=== PATIENT | female | born 2000 | race Hispanic/Latino ===

== ENCOUNTER 2019-09-01 05:47 | Emergency (ER) | payer OTHER, SELFPAY ==
[2019-09-01 07:07] LABS: Urine Blood 1+ (NEG); Urine Glucose NEGATIVE (NEG); Urine Protein 2+ (NEG); Urine Specific Gravity >1.030 (1.005-1.030); Urine pH 5.5 (5.0-7.0)
[2019-09-01 07:40] LABS: Urine Bacteria 20-50 /HPF (<20); Urine Culture Reflex Order NOT NEEDED
[2019-09-01] MEDS ORDERED: NA CHLORIDE 0.9% 1,000 ML ONE (07:43)
[2019-09-01 08:00] LABS: Absolute Lymphocytes (CBC) 1.1 K/uL (0.7-4.9); Basophils % 0.1 % (0-1.3); Hematocrit 37.2 % (36.0-45.0); Lymphocytes % 5.3 % (15.3-44.8); RBC Red Blood Cell Count 4.04 M/uL (3.86-4.86)
[2019-09-01 08:12] LABS: Potassium 3.3 mmol/L (3.5-5.1)
[2019-09-01 09:03] LABS: Blood Morphology Comment NOT SEEN (NOT SEEN); Platelet Estimate ADEQ
[2019-09-01] MEDS ORDERED: CEFTRIAXONE/SWI 1gm 1 GM/10 ML SYR ONE (09:40)
--- NOTE | 2019-09-01 10:55 | EDPHYS ---
Physician Documentation [facility] Name: Isidra Todd Age: 19 yrs Sex: Female : 2000 Arrival Date: 09/01/2019 Time: 05:48 Bed 13 Private MD: ED Physician Kit Hawkins HPI: 08/31 06:59 This 19 yrs old Female presents to ER via Ambulatory with complaints of Fever, snw Vomiting. 06:59 The patient reports fever, that was measured at 104 degrees Fahrenheit. Onset: The snw symptoms/episode began/occurred suddenly, last night. Modifying factors: there are no obvious modifying factors. Associated signs and symptoms: Pertinent positives: decreased appetite, headache, nausea, vomiting. Severity of symptoms: At their worst the symptoms were moderate in the emergency department the symptoms are unchanged. The patient has not experienced similar symptoms in the past. The patient has not recently seen a physician. 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 - Social history:: Smoking status: Patient/guardian denies using. ROS: 06:58 Eyes: Negative for injury, pain, redness, and discharge, ENT: Negative for injury, snw pain, and discharge, Neck: Negative for injury, pain, and swelling, Cardiovascular: Negative for chest pain, palpitations, and edema, Respiratory: Negative for shortness of breath, cough, wheezing, and pleuritic chest pain. 06:58 Back: Negative for injury and pain, : Negative for injury, bleeding, discharge, and swelling, MS/Extremity: Negative for injury and deformity, Skin: Negative for injury, rash, and discoloration, Neuro: Negative for headache, weakness, numbness, tingling, and seizure, Psych: Negative for depression, anxiety, suicide ideation, homicidal ideation, and hallucinations. 06:58 Constitutional: Positive for fever. 06:58 Abdomen/GI: Positive for nausea and vomiting. Exam: 06:58 Head/Face: Normocephalic, atraumatic. Eyes: Pupils equal round and reactive to light, snw extra-ocular motions intact. Lids and lashes normal. Conjunctiva and sclera are non-icteric and not injected. Cornea within normal limits. Periorbital areas with no swelling, redness, or edema. ENT: Nares patent. No nasal discharge, no septal abnormalities noted. Tympanic membranes are normal and external auditory canals are clear. Oropharynx with no redness, swelling, or masses, exudates, or evidence of obstruction, uvula midline. Mucous membranes moist. Neck: Trachea midline, no thyromegaly or masses palpated, and no cervical lymphadenopathy. Supple, full range of motion without nuchal rigidity, or vertebral point tenderness. No Meningismus. Chest/axilla: Normal chest wall appearance and motion. Nontender with no deformity. No lesions are appreciated. Respiratory: Lungs have equal breath sounds bilaterally, clear to auscultation and percussion. No rales, rhonchi or wheezes noted. No increased work of breathing, no retractions or nasal flaring. Abdomen/GI: Soft, non-tender, with normal bowel sounds. No distension or tympany. No guarding or rebound. No evidence of tenderness throughout. Back: No spinal tenderness. No costovertebral tenderness. Full range of motion. Skin: Warm, dry with normal turgor. Normal color with no rashes, no lesions, and no evidence of cellulitis. MS/ Extremity: Pulses equal, no cyanosis. Neurovascular intact. Full, normal range of motion. Neuro: Awake and alert, GCS 15, oriented to person, place, time, and situation. Cranial nerves II-XII grossly intact. Motor strength 5/5 in all extremities. Sensory grossly intact. Cerebellar exam normal. Normal gait. Psych: Awake, alert, with orientation to person, place and time. Behavior, mood, and affect are within normal limits. 06:58 Constitutional: The patient appears alert, febrile, uncomfortable. 06:58 Cardiovascular: Rate: tachycardic, Rhythm: regular, Pulses: no pulse deficits are appreciated, Heart sounds: normal. Vital Signs: 06:00 BP 119 / 69; Pulse 120; Resp 18; Temp 99.7(O); wh 07:30 BP 111 / 73; Pulse 95; Resp 18; Pulse Ox 99% on R/A; ph 08:41 BP 98 / 71; Pulse 83; Resp 18; Pulse Ox 100% on R/A; ph 10:00 BP 104 / 68; Pulse 77; Resp 16; Pulse Ox 100% on R/A; ph 11:19 BP 119 / 75; Pulse 67; Resp 18; Temp 98.1; Pulse Ox 99% on R/A; ph MDM: 06:54 Patient medically screened. snw 10:56 Data reviewed: vital signs, nurses notes, lab test result(s). Data interpreted: Cardiac snw monitor: Pulse oximetry: on room air is 100 %. Interpretation: normal. Response to treatment: the patient's symptoms have markedly improved after treatment. Special discussion: Based on the history and exam findings, there is no indication for further emergent testing or inpatient evaluation. I discussed with the patient/guardian the need to see the primary care provider for further evaluation of the symptoms. ED course: pt markedly improved, no nuchal rigidity, no vomiting, tachycardia resolved. Return precautions given and pt voices understanding. 08/31 06:40 Order name: Flu; Complete Time: 07:28 snw 08/31 06:40 Order name: Urine Culture snw 08/31 06:40 Order name: Urine Microscopic Only; Complete Time: 07:41 snw 08/31 06:40 Order name: Strep; Complete Time: 07:28 snw 08/31 07:03 Order name: Urine Dipstick--Ancillary (enter results); Complete Time: 07:12 ds4 08/31 07:13 Order name: CBC with Diff; Complete Time: 09:11 snw 08/31 06:40 Order name: Urine Dipstick-Ancillary (obtain specimen); Complete Time: 07:02 snw 08/31 07:13 Order name: Chem 7; Complete Time: 08:30 snw 08/31 07:13 Order name: Blood Culture Adult (2) snw 08/31 07:22 Order name: Throat Culture EDMS 08/31 08:59 Order name: Cath; Complete Time: 10:17 snw 08/31 09:03 Order name: Manual Differential; Complete Time: 09:11 EDMS Administered Medications: 08:00 Drug: NS 0.9% 1000 ml Route: IV; Rate: 1 bolus; Site: right antecubital; ph 11:23 Follow up: Response: No adverse reaction; IV Status: Completed infusion ph 10:13 Drug: Rocephin 1 grams Route: IV; Rate: calculated rate; Site: right antecubital; ph 11:23 Follow up: Response: No adverse reaction; IV Status: Completed infusion ph Disposition: 20:24 Co-signature as Attending Physician, Kit Hawkins MD. rn Disposition: 09/01/19 10:54 Discharged to Home. Impression: Fever, unspecified, Urinary tract infection, site not specified. - Condition is Stable. - Discharge Instructions: Dehydration, Adult, Fever, Adult, Urinary Tract Infection, Adult, Rehydration, Adult. - Prescriptions for Augmentin 875- 125 mg Oral Tablet - take 1 tablet by ORAL route every 12 hours for 10 days; 20 tablet. promethazine 25 mg Oral Tablet - take 1 tablet by ORAL route every 6 hours As needed; 20 tablet. - Work release form, Medication Reconciliation Form, Thank You Letter, Antibiotic Education, Prescription Opioid Use, School release form form. - Follow up: Emergency Department; When: As needed; Reason: Worsening of condition. Follow up: Private Physician; When: 2 - 3 days; Reason: Recheck today's complaints, Continuance of care, Re-evaluation by your physician. Signatures: Dispatcher [employer] EDMS Lynn Diaz, KITCHEN AND COUNTER WORKER-C KITCHEN AND COUNTER WORKER-Csnw Kit Hawkins MD MD rn Hall, Patricia, RN RN Nettie Alonso Corrections: (The following items were deleted from the chart) 11:24 10:54 09/01/2019 10:54 Discharged to Home. Impression: Fever, unspecified; Urinary ph tract infection, site not specified. Condition is Stable. Forms are Medication Reconciliation Form, Thank You Letter, Antibiotic Education, Prescription Opioid Use. Follow up: Emergency Department; When: As needed; Reason: Worsening of condition. Follow up: Private Physician; When: 2 - 3 days; Reason: Recheck today's complaints, Continuance of care, Re-evaluation by your physician. snw
--- NOTE | 2019-09-01 10:55 | ER ---
Nurse's Notes [facility] Name: Isidra Todd Age: 19 yrs Sex: Female : 2000 Arrival Date: 09/01/2019 Time: 05:48 Bed 13 Private MD: Diagnosis: Fever, unspecified;Urinary tract infection, site not specified Presentation: 08/31 06:12 Chief complaint: Patient states: fever, nausea and vomiting that started yesterday with wh associated symptom of headache. Coronavirus screen: The patient has NOT traveled to [place] in the past 14 days. Ebola Screen: Patient negative for fever greater than or equal to 101.5 degrees Fahrenheit, and additional compatible Ebola Virus Disease symptoms Patient denies exposure to infectious person. Initial Sepsis Screen: Does the patient meet any 2 criteria? HR > 90 bpm. Does the patient have a suspected source of infection? No. Patient's initial sepsis screen is negative. Risk Assessment: Do you want to hurt yourself or someone else? Patient reports no desire to harm self or others. 06:12 Method Of Arrival: Ambulatory 06:12 Acuity: GABBY 3 06:18 Onset of symptoms was September 01, 2019. 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 - Social history:: Smoking status: Patient/guardian denies using. Screenin:17 Abuse screen: Denies threats or abuse. Denies injuries from another. Nutritional screening: No deficits noted. Tuberculosis screening: No symptoms or risk factors identified. Fall Risk None identified. Assessment: 06:15 General: Appears in no apparent distress. Behavior is calm, cooperative, appropriate for age. Pain: Complains of pain in headache Pain does not radiate. Pain currently is 4 out of 10 on a pain scale. Neuro: Level of Consciousness is awake, alert, obeys commands, Oriented to person, place, time, situation, Appropriate for age Reports headache. Cardiovascular: Capillary refill < 3 seconds. Respiratory: Airway is patent Respiratory effort is even, unlabored, Respiratory pattern is regular, symmetrical. GI: Abdomen is flat, non-distended, Abd is soft and non tender X 4 quads. Reports nausea, vomiting. : No signs and/or symptoms were reported regarding the genitourinary system. EENT: No signs and/or symptoms were reported regarding the EENT system. Derm: Skin is intact, is healthy with good turgor, Skin is pink, warm \T\ dry. normal. Musculoskeletal: Circulation, motion, and sensation intact. 07:30 Reassessment: Patient appears in no apparent distress at this time. Patient and/or ph family updated on plan of care and expected duration. Pain level reassessed. Patient is alert, oriented x 3, equal unlabored respirations, skin warm/dry/pink. 08:30 Reassessment: Patient appears in no apparent distress at this time. Patient and/or ph family updated on plan of care and expected duration. Pain level reassessed. Patient is alert, oriented x 3, equal unlabored respirations, skin warm/dry/pink. 10:00 Reassessment: Patient appears in no apparent distress at this time. Patient and/or ph family updated on plan of care and expected duration. Pain level reassessed. Patient is alert, oriented x 3, equal unlabored respirations, skin warm/dry/pink. 11:22 Reassessment: Patient appears in no apparent distress at this time. Patient and/or ph family updated on plan of care and expected duration. Pain level reassessed. Patient is alert, oriented x 3, equal unlabored respirations, skin warm/dry/pink. Vital Signs: 06:00 BP 119 / 69; Pulse 120; Resp 18; Temp 99.7(O); wh 07:30 BP 111 / 73; Pulse 95; Resp 18; Pulse Ox 99% on R/A; ph 08:41 BP 98 / 71; Pulse 83; Resp 18; Pulse Ox 100% on R/A; ph 10:00 BP 104 / 68; Pulse 77; Resp 16; Pulse Ox 100% on R/A; ph 11:19 BP 119 / 75; Pulse 67; Resp 18; Temp 98.1; Pulse Ox 99% on R/A; ph ED Course: 05:48 Patient arrived in ED. ds1 05:59 Lynn Diaz FNP-C is [facility]. snw 05:59 Kit Hawkins MD is Attending Physician. snw 06:14 Triage completed. 06:17 Arm band placed on right wrist. 06:17 Patient has correct armband on for positive identification. Bed in low position. Call light in reach. Side rails up X 1. Pulse ox on. NIBP on. 07:02 Strep Sent. ds4 07:02 Flu Sent. ds4 07:06 Kerri Mary, RN is Primary Nurse. ph 11:23 No provider procedures requiring assistance completed. IV discontinued, intact, ph bleeding controlled, No redness/swelling at site. Pressure dressing applied. Administered Medications: 08:00 Drug: NS 0.9% 1000 ml Route: IV; Rate: 1 bolus; Site: right antecubital; ph 11:23 Follow up: Response: No adverse reaction; IV Status: Completed infusion ph 10:13 Drug: Rocephin 1 grams Route: IV; Rate: calculated rate; Site: right antecubital; ph 11:23 Follow up: Response: No adverse reaction; IV Status: Completed infusion ph Outcome: 10:54 Discharge ordered by . snw 11:24 Discharged to home ambulatory, with family. ph 11:24 Condition: good 11:24 Discharge instructions given to patient, Instructed on discharge instructions, follow up and referral plans. medication usage, Demonstrated understanding of instructions, follow-up care, medications, Prescriptions given X 2. 11:24 Patient left the ED. ph Signatures: Lynn Diaz, HOTEL SERVICES SALES REPRESENTATIVE-C HOTEL SERVICES SALES REPRESENTATIVE-Csnw Naheed Mckee ds1 Storm Costello ds4 Kerri Mary, CHAD RN Nettie Alonso
[2019-09-01 12:20] VITALS: BP 119/75; TEMP 98.1; O2SAT 99
== END 2019-09-01 11:24 | disposition home or self-care (01) ==
LOC: ER 05:47
DX: N39.0 Urinary tract infection, site not specified (principal)
CPT/HCPCS: 36415; 80048; 81003; 81015; 85025; 87040; 87070; 87081; 87086; 87088; 87804; 96361; 96365; 99284; J0696; J7030

== ENCOUNTER 2021-05-09 09:20 | Emergency (ER) | payer OTHER ==
[2021-05-09 10:08] LABS: Urine Blood Trace-intact (Negative); Urine Glucose Negative (Negative); Urine Protein Negative (Negative); Urine Specific Gravity 1.025 (1.005-1.030)
[2021-05-09 10:19] LABS: Basophils % 0.4 % (0-1.3); Hematocrit 36.4 % (36.0-45.0); Lymphocytes % 42.5 % (15.3-44.8); MPV 8.7 fL (7.6-11.3); RBC Red Blood Cell Count 3.93 M/uL (3.86-4.86)
[2021-05-09 10:51] LABS: BUN Blood Urea Nitrogen 10 mg/dL (7-18); Bicarbonate 24 mmol/L (21-32); Glucose Level 87 mg/dL (74-106); HCG, Quantitative 37890 mIU/mL (1-3); Potassium 3.7 mmol/L (3.5-5.1); Sodium Level 138 mmol/L (136-145)
--- NOTE | 2021-05-09 11:04 | ER ---
Nurse's Notes [facility] Name: Isidra Todd Age: 21 yrs Sex: Female : 2000 Arrival Date: 05/09/2021 Time: 09:22 Bed 20 Private MD: Yany Delcid K Diagnosis: Threatened Presentation: 05/09 09:36 Chief complaint: Patient states: pt states she had blood clots this morning and she is ll3 7 weeks . Coronavirus screen: At this time, the client does not indicate any symptoms associated with coronavirus-19. Ebola Screen: No symptoms or risks identified at this time. Initial Sepsis Screen: Does the patient meet any 2 criteria? No. Patient's initial sepsis screen is negative. Does the patient have a suspected source of infection? No. Patient's initial sepsis screen is negative. Risk Assessment: Do you want to hurt yourself or someone else? Patient reports no desire to harm self or others. Onset of symptoms was May 09, 2021 at 04:30. 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 - Social history:: Smoking status: Patient denies any tobacco usage or history of. Screenin:38 Abuse screen: Denies threats or abuse. Nutritional screening: No deficits noted. sl2 Tuberculosis screening: No symptoms or risk factors identified. Fall Risk None identified. No fall in past 12 months (0 pts). No secondary diagnosis (0 pts). IV access (20 points). Ambulatory Aid- None/Bed Rest/Nurse Assist (0 pts). Gait- Normal/Bed Rest/Wheelchair (0 pts) Mental Status- Oriented to own ability (0 pts). Total Bazan Fall Scale indicates No Risk (0-24 pts). Assessment: 09:38 Obstetrical Assessment: General assessment: awake and alert, skin warm and dry, sl2 respirations even and unlabored. 09:38 General: Appears in no apparent distress. well groomed, well developed, Behavior is sl2 calm, cooperative, appropriate for age. Neuro: No deficits noted. Level of Consciousness is awake, alert, obeys commands, Oriented to person, place, time, situation, Appropriate for age Scalper Operator are equal bilaterally Moves all extremities. Full function Gait is steady, Speech is normal, Facial symmetry appears normal. Cardiovascular: No deficits noted. Reports. Respiratory: No deficits noted. Airway is patent Trachea midline Respiratory effort is even, unlabored, Respiratory pattern is regular, symmetrical. GI: No deficits noted. No signs and/or symptoms were reported involving the gastrointestinal system. : No deficits noted. No signs and/or symptoms were reported regarding the genitourinary system. EENT: No deficits noted. No signs and/or symptoms were reported regarding the EENT system. Derm: No deficits noted. No signs and/or symptoms reported regarding the dermatologic system. Musculoskeletal: No deficits noted. No signs and/or symptoms reported regarding the musculoskeletal system. Vital Signs: 09:36 BP 137 / 74; Pulse 82; Resp 16; Temp 97.3; Pulse Ox 100% ; Weight 56.7 kg; Height 4 ft. ll3 11 in. (149.86 cm); Pain 4/10; 10:01 BP 102 / 73; Pulse 85; Resp 18; Pulse Ox 100% on R/A; sl2 09:36 Body Mass Index 25.25 (56.70 kg, 149.86 cm) ll3 Vitals: 11:19 Heart Tones N/A. iw ED Course: 09:22 Patient arrived in ED. am2 09:22 Yany Delcid MD is Private Physician. am2 09:38 Patient has correct armband on for positive identification. Placed in gown. Bed in low sl2 position. Call light in reach. 09:39 Triage completed. ll3 09:40 Arm band placed on. ll3 09:41 Orlando Casas MD is Attending Physician. pkl 09:57 Agustina Tovar RN is Primary Nurse. sl2 10:02 Patient taken to ultrasound. via wheelchair. sl2 10:05 Initial lab(s) drawn, by me, sent to lab. Inserted saline lock: 20 gauge in right kj1 antecubital area, using aseptic technique. hand, using aseptic technique. Blood collected. 10:05 Urine collected: clean catch specimen, clear. kj1 10:09 Urine Dipstick-Ancillary Sent. kj1 10:32 Patient moved back from ultrasound. sl2 10:41 Transvaginal OB In Process Unspecified. EDMS 11:02 Jr Gu MD is Referral Physician. pkl 11:19 No provider procedures requiring assistance completed. IV discontinued, intact, iw bleeding controlled, No redness/swelling at site. Pressure dressing applied. Administered Medications: No medications were administered Outcome: 11:03 Discharge ordered by . pkl 11:19 Discharged to home ambulatory. iw 11:19 Condition: good 11:19 Discharge instructions given to patient, Instructed on discharge instructions, follow up and referral plans. Demonstrated understanding of instructions, follow-up care. 11:19 Patient left the ED. iw Signatures: Dispatcher [employer] EDOrlando Sheldon MD MD pkl Alcie Sanderson, RN RN iw Valery Vazquez am2 Sadia Amador kj1 Agustina Tovar, RN RN sl2 Renate Oliver RN RN ll3 Corrections: (The following items were deleted from the chart) 10:41 10:22 In radiology for Transvaginal Study (Probe)+[email or web address]. EDOK EDMS
--- NOTE | 2021-05-09 11:04 | EDPHYS ---
Physician Documentation [facility] Name: Isidra Todd Age: 21 yrs Sex: Female : 2000 Arrival Date: 05/09/2021 Time: 09:22 Bed 20 Private MD: Yany Delcid K ED Physician Orlando Casas HPI: 05/09 09:51 This 21 yrs old Female presents to ER via Ambulatory with complaints of pkl Vaginal Bleeding, + Preg <12wks. 09:52 The patient presents with vaginal bleeding that is moderate, with clots. Onset: The pkl symptoms/episode began/occurred this morning. Associated signs and symptoms: The patient has no apparent associated signs or symptoms. 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 - Social history:: Smoking status: Patient denies any tobacco usage or history of. ROS: 09:52 Positive for vaginal bleeding. pkl 09:52 Eyes: Negative for injury, pain, redness, and discharge, ENT: Negative for injury, pain, and discharge, Neck: Negative for injury, pain, and swelling, Cardiovascular: Negative for chest pain, palpitations, and edema, Respiratory: Negative for shortness of breath, cough, wheezing, and pleuritic chest pain, Abdomen/GI: Negative for abdominal pain, nausea, vomiting, diarrhea, and constipation, Back: Negative for injury and pain, MS/Extremity: Negative for injury and deformity, Skin: Negative for injury, rash, and discoloration, Neuro: Negative for headache, weakness, numbness, tingling, and seizure. Exam: 10:57 Head/Face: Normocephalic, atraumatic. Eyes: Pupils equal round and reactive to light, pkl extra-ocular motions intact. Lids and lashes normal. Conjunctiva and sclera are non-icteric and not injected. Cornea within normal limits. Periorbital areas with no swelling, redness, or edema. ENT: Nares patent. No nasal discharge, no septal abnormalities noted. Tympanic membranes are normal and external auditory canals are clear. Oropharynx with no redness, swelling, or masses, exudates, or evidence of obstruction, uvula midline. Mucous membranes moist. Neck: Trachea midline, no thyromegaly or masses palpated, and no cervical lymphadenopathy. Supple, full range of motion without nuchal rigidity, or vertebral point tenderness. No Meningismus. Chest/axilla: Normal chest wall appearance and motion. Nontender with no deformity. No lesions are appreciated. Cardiovascular: Regular rate and rhythm with a normal S1 and S2. No gallops, murmurs, or rubs. Normal PMI, no JVD. No pulse deficits. Respiratory: Lungs have equal breath sounds bilaterally, clear to auscultation and percussion. No rales, rhonchi or wheezes noted. No increased work of breathing, no retractions or nasal flaring. Abdomen/GI: Soft, non-tender, with normal bowel sounds. No distension or tympany. No guarding or rebound. No evidence of tenderness throughout. Back: No spinal tenderness. No costovertebral tenderness. Full range of motion. 10:57 : Pelvic Exam: bimanual exam reveals os that is closed, No active bleeding noted. Vital Signs: 09:36 BP 137 / 74; Pulse 82; Resp 16; Temp 97.3; Pulse Ox 100% ; Weight 56.7 kg; Height 4 ft. ll3 11 in. (149.86 cm); Pain 4/10; 10:01 BP 102 / 73; Pulse 85; Resp 18; Pulse Ox 100% on R/A; sl2 09:36 Body Mass Index 25.25 (56.70 kg, 149.86 cm) ll3 MDM: 09:41 Patient medically screened. pkl 10:57 Data reviewed: vital signs, nurses notes, lab test result(s), radiologic studies, pkl ultrasound. ED course: Patient feeling better. Not in any distress. Discussed lab and US results with patient. Advised bed and pelvic rest. To follow up with Dr. Gu in 2 to 3 days. Return if vaginal bleeding is worse. Patient understood instructions. 11 09:48 Order name: CBC with Diff pkl 05/09 09:48 Order name: Chem 7 pkl 05/09 09:48 Order name: Quantitative Hcg pkl 05/09 09:48 Order name: Rh Typing pkl 05/09 09:49 Order name: CBC with Automated Diff; Complete Time: 10:48 EDMS 05/09 09:49 Order name: Basic Metabolic Panel; Complete Time: 10:51 EDMS 05/09 09:48 Order name: Saline Lock; Complete Time: 10:09 pkl 05/09 09:48 Order name: Urine Dipstick-Ancillary (obtain specimen); Complete Time: 10:09 pkl 05/09 09:49 Order name: HCG, Quantitative; Complete Time: 10:51 EDMS 05/09 09:49 Order name: Rh Typing; Complete Time: 10:48 EDMS 05/09 10:07 Order name: Urine Dipstick-Ancillary; Complete Time: 10:48 EDMS 05/09 10:08 Order name: Urine --Ancillary (enter results) bd 05/09 10:41 Order name: Transvaginal OB EDMS Administered Medications: No medications were administered Disposition Summary: 05/09/21 11:03 Discharge Ordered Location: Home pkl Problem: new pkl Symptoms: have improved pkl Condition: Stable pkl Diagnosis - Threatened pkl Followup: pkl - With: Jr Gu MD - When: 2 - 3 days - Reason: Re-evaluation by your physician Discharge Instructions: - Discharge Summary Sheet pkl - Threatened Miscarriage, [id number] iw Forms: - Medication Reconciliation Form pkl - Thank You Letter pkl - Antibiotic Education pkl - Work release form pkl - Prescription Opioid Use pkl Signatures: Dispatcher [employer] EDMS Orlando Casas MD MD pkl Renate Oliver RN RN ll3 Corrections: (The following items were deleted from the chart) 10:41 09:51 Transvaginal Study (Probe)+[email or web address] ordered. EDMS EDMS
[2021-05-09 11:19] LABS: Urine Specific Gravity/Preg 1.025 (1.005-1.030)
[2021-05-09 11:29] VITALS: TEMP 97.3; O2SAT 100
[2021-05-09 11:30] VITALS: BP 102/73
--- NOTE | 2021-05-09 11:46 | RAD REPORT ---
EXAM DESCRIPTION: US - Transvaginal OB - 05/09/2021 10:47 am CLINICAL HISTORY: VAGINAL BLEEDING COMPARISON: No comparisons FINDINGS: A single gestational sac is seen within the uterus. The shape of the sac is within normal limits for gestational age. Within the sac is a single pole with crown-rump length of 8 mm, cor relating to estimated gestational age of 6 weeks 5 days. Estimated date of delivery is 12/29/2021. Heart rate is 125 BPM. 5 mm inferior subchorionic bleed. The placenta is not yet developed due to early gestational age. The maternal adnexa and ovaries are within normal limits. Normal Doppler blood flow was demonstrated to both ovaries. IMPRESSION: Single live early intrauterine gestation with estimated gestational age of 6 weeks and 5 days, JULIO CESAR 12/29/2021. Small 5 mm inferior subchorionic bleed.
== END 2021-05-09 11:19 | disposition home or self-care (01) ==
LOC: ER 09:20
DX: O20.0 Threatened abortion (principal); Z3A.01 Less than 8 weeks gestation of pregnancy
CPT/HCPCS: 36415; 76817; 80048; 81003; 81025; 84702; 85025; 86901; 99284

== ENCOUNTER 2023-10-30 08:46 | Emergency (ER) | payer BC ==
--- OUTSIDE RECORDS SUMMARY | 2023-10-30 08:50 | XMS REPORT | Continuity of Care Document ---
Author Name Unknown Address [address] [facility] [address] [place] [address] [facility] thconnect Address [address] [facility]. [address] [place] [address] Care Team Providers Care Senior Program Manager Name Role Phone Pcp, Patient Does Not Have A Primary Care Physic young [email or web address]_S Attending Clinician Unavaila MAYA Ayala Attending Clinician Unavailable TETO STRAUSS Attending Clinician Unavaila ble TRITSTETO KONG Attending Clinician Unavaila ble Lab, Ang - Db Attending Clinician Unavailable Doctor Unassigned, [place] Attending Clinician U Brooklynn Jackson MA Attending Clinician UnavailDACIA Teixeira Attending Clinician Unavailable Dacia Marte MD Attending Clinician [phone] Attending Clinician Unavailable Tammy Way MD Attending Clinician [phone] Brooke Urrutia MD Attending Clinician [phone] Golden Peters DO Attending Clinician [phone] Mai Zavala MD Attending Clinician [phone] Only, Adc Test Attending Clinician Unavailable Pob, [facility] Main Attending Clinician Unavailradha e GC_GCBZW_Kadiyala_S Admitting Clinician Unavaila TAMMY Veloz Admitting Clinician Unavailable Tammy Way MD Admitting Clinician DACIA MARTE Admitting Clinician Unavailable Dacia Marte MD Admitting Clinician Payers Payer Name Policy Type Policy Number Effective Date Expirati on Date Source [facility] [id number] 2022 00:00:00 [employer] - [facility] STATE [id number] 2021 00:00:00 Problems Condition Name Condition Details Condition Category Status Onset Date Resolution Date Last Treatment Date Treating Clinician Comments Source Positive depression screening Positive depression screening Disease Active 8-17 00:00: 00 [facility] Anxiety and depression Anxiety and depression Disease Active 8-15 00:00: 00 [facility] Pain pelvic Pain pelvic Disease Active 815 00:00: 00 [facility] History of ovarian cyst History of ovarian cyst Disease Active 8-15 00:00: 00 [facility] Presence of intrauteri ne contracept jessica device Presence of intrauteri ne contracept jessica device Disease Active 8-15 00:00: 00 [facility] Anemia during in third trimester Anemia during in third trimester Disease Active 12-29 00:00: 00 [facility] Overweight Overweight Disease Active 12-29 00:00: 00 [facility] BMI 25.0-25.9, adult BMI 25.0-25.9, adult Disease Active 12-29 00:00: 00 [facility] Chorioamni onitis in third trimester Chorioamni onitis in third trimester Disease Active 12-28 00:00: 00 [facility] (spontaneo us vaginal delivery) (spontaneo us vaginal delivery) Disease Active 6 00:00: 00 [facility] Single live Single live Disease Active 0 630 00:00: 00 [facility] Meconium in amniotic fluid affecting management of mother in third trimester Meconium in amniotic fluid affecting management of mother in third trimester Disease Active 6 00:00: 00 [facility] Elevated blood-pres sure reading without diagnosis of hypertensi on Elevated blood-pres sure reading without diagnosis of hypertensi on Disease Active 6 00:00: 00 [facility] 39 weeks gestation of 39 weeks gestation of Disease Active 6 00:00: 00 [facility] Encounter for induction of labor Encounter for induction of labor Disease Active 6 00:00: 00 [facility] Encounter for elective induction of labor Encounter for elective induction of labor Disease Active 6 00:00: 00 [facility] Encounter for supervisio n of normal first in third trimester Encounter for supervisio n of normal first in third trimester Disease Active 4-26 00:00: 00 [facility] Genital herpes affecting in third trimester Genital herpes affecting in third trimester Disease Active 4-26 00:00: 00 [facility] No known active problems No known active problems Disease [facility] Allergies, Adverse Reactions, Alerts Allergy Name Allergy Type Status Severity Reaction(s) Onset Date Inactive Date Treating Clinician Comments Source NO KNOWN ALLERGIE S Drug Class Active [facility] Social History Social Habit Start Date Stop Date Quantity Comments Source ASSERTION 2021-04-06 00:00:00 [facility] Gender identity [facility] Sexual orientation U [facility] Alcohol intake 2023-02-20 00:00:00 2023-02-20 00:00:00 Ex-drinker (finding) [facility] Exposure to SARS-CoV-2 (event) 2022-01-05 00:00:00 2022-01-15 10:51:00 Not sure [facility] Tobacco use and exposure 2022-01-15 00:00:00 2022-01-15 00:00:00 Smokeless tobacco non-user [facility] History of Social function 2021-10-24 00:00:00 2021-10-24 00:00:00 [facility] Sex Assigned At 2000 00:00:00 2000 00:00:00 [facility] Smoking Status Start Date Stop Date Source Never smoked tobacco [facility] Medications Ordered Medication Name Filled Medication Name Start Date Stop Date Current Medication? Ordering Clinician Indication Dosage Frequency Signature (SIG) Comments Components Source buPROPion XL 150 mg 24 hr tablet 02-12 00:00: 00 Yes [id number] 150mg Take 1 tablet by mouth in the morning. [facility] levonorgest reL (KYLEENA) IUD 1 Device 02-27 19:00: 00 02-27 18:12 :00 No [id number] 1{devic e} [facility] hydrocortis one 25 mg suppository 02-27 00:00: 00 03-29 00:00 :00 No [id number] 25mg Insert 1 Suppositor y into rectum in the morning and 1 Suppositor y in the evening. [facility] polyethylen e glycol 3350 (MIRALAX) 17 gram powder 02-27 00:00: 00 03-29 00:00 :00 No [id number] 1{packe t} Take 1 Packet by mouth every 24 (twenty-fo ur) hours as needed for Constipati on. [facility] magnesium hydroxide concentrate 02-27 00:00: 00 03-29 00:00 :00 No [id number] 10mL Take 10 mL by mouth once daily as needed for Constipati on. [facility] miSOPROStoL 200 mcg tablet 01-15 00:00: 00 01-17 04:59 :00 No [id number] 200ug Take 1 tablet by mouth in the morning and 1 tablet in the evening. Do all this for 1 day. Take the night before and the morning of the procedure. [facility] vit/iron fum/folic ac (RIGHT STEP VITAMINS ORAL) 12-29 12:40: 45 12-29 00:00 :00 No [id number] Take by mouth. [facility] vitamin w/FA tablet 12-29 00:00: 00 Yes [id number] 1{tbl} Take 1 tablet by mouth daily. [facility] vitamin w/FA tablet 12-29 00:00: 00 Yes [id number] 1{tbl} Take 1 tablet by mouth daily. [facility] docusate 100 mg capsule 12-29 00:00: 00 03-29 00:00 :00 No [id number] 200mg Take 2 capsules by mouth once daily as needed for Constipati on. [facility] ferrous sulfate 325 mg (65 mg iron) tablet 12-29 00:00: 00 02-27 00:00 :00 No [id number] 325mg Take 1 tablet by mouth 2 (two) times daily. [facility] ibuprofen 600 mg tablet 12-29 00:00: 00 02-27 00:00 :00 No [id number] 600mg Take 1 tablet by mouth every 6 (six) hours as needed (Pain). Take with food or milk. [facility] tobramycin (NEBCIN) 280 mg in NaCl 0.9% (NS) piggyback 12-28 22:00: 00 12-28 22:56 :00 No 5mg/kg 280 mg (rounded from 289 mg = 5 mg/kg ?57.8 kg Adjusted weight), IV Piggyback, ONCE, 1 dose, On [facility] 12/28/21 at 1700, Administer over 30 Minutes, 50 mL
Reas on for Anti-Infec tive: Empiric Therapy for Suspected Infection< br>Empiric Therapy Site: Pelvic
Duration of therapy: 72 hours [facility] ampicillin (POLYCILLIN -N) 2,000 mg in NaCl 0.9% (NS) 100 mL MINI-BAG 12-28 09:00: 00 12-29 04:33 :00 No 2g 2,000 mg (2 g), IV Piggyback, Q6H ABX, 4 doses, First dose (after last reorder) on Sat12/28/21 at 0400, Last dose on Sat12/28/21 at 2200, Administer over 30 Minutes, 100 mL
Reas on for Anti-Infec tive: Empiric Therapy for Suspected Infection< br>Empiric Therapy Site: Pelvic
Duration of therapy: 72 hours [facility] rho(D) immune globulin (RHOGAM) syringe 300 mcg 12-28 07:48: 04 Yes 300ug 300 mcg, Intramuscu lar, ONCE, For 1 dose, Conditiona l, Routine [facility] human papillomav vac,9-chapincito(P F) (GARDASIL-9 ) syringe 0.5 mL 12-28 07:48: 03 Yes .5mL 0.5 mL, Intramuscu lar, ONCE-PRIOR TO DISCHARGE, 1 dose, Starting on Sat12/28/21 at 0248, Until Discontinu ed, Routine, Give vaccine prior to discharge [facility] ibuprofen (IBU) tablet 600 mg 12-28 07:48: 03 Yes 600mg 600 mg, Oral, Q6HPRN, Starting on Sat12/28/21 at 0248, Until Discontinu ed, Routine, Pain (scale 4-6) [facility] acetaminoph en (TYLENOL) tablet 650 mg 12-28 07:48: 03 Yes 650mg 650 mg, Oral, Q6HPRN, Starting on Sat12/28/21 at 0248, Until Discontinu ed, Routine, Pain (scale 1-3) [facility] diphenhydrA MINE (BENADRYL) tablet 25 mg 12-28 07:48: 03 Yes 25mg 25 mg, Oral, Q6HPRN, Starting on Sat12/28/21 at 0248, Until Discontinu ed, Routine, Sleep, Itching [facility] ondansetron (ZOFRAN (PF)) injection 4 mg 12-28 07:48: 03 Yes 4mg 4 mg, Slow IV Push, Q8HPRN, Starting on Sat12/28/21 at 0248, Until Discontinu ed, Routine, Nausea and Vomiting (N/V) [facility] simethicone (GAS RELIEF (SIMETHICON E)) chewable tablet 160 mg 12-28 07:48: 03 Yes 160mg 160 mg, Oral, PC+HSPRN, Starting on Sat12/28/21 at 0248, Until Discontinu ed, Routine, Gas [facility] docusate (COLACE) capsule 200 mg 12-28 07:48: 03 Yes 200mg 200 mg, Oral, QDAILYPRN, Starting on Sat12/28/21 at 0248, Until Discontinu ed, Routine, Constipati on [facility] magnesium hydroxide (MILK OF MAGNESIA) 400 mg/5 mL suspension 30 mL 12-28 07:48: 03 Yes 30mL 30 mL, Oral, QDAILYPRN, Starting on Sat12/28/21 at 0248, Until Discontinu ed, Routine, Constipati on [facility] benzocaine- menthol (DERMOPLAST ) 20-0.5 % topical spray 12-28 07:48: 03 Yes Topical, PRN, Starting on Sat12/28/21 at 0248, Until Discontinu ed, Routine, Perineum discomfort [facility] acetaminoph en (TYLENOL) tablet 650 mg 12-28 06:30: 00 12-28 05:39 :00 No 650mg 650 mg, Oral, ONCE, 1 dose, On Sat12/28/21 at 0130, Routine [facility] methylergon ovine (METHERGINE ) injection 0.2 mg 12-28 06:15: 00 12-28 04:50 :00 No .2mg 0.2 mg, Intramuscu lar, ONCE, 1 dose, On Sat12/28/21 at 0115, Routine [facility] oxytocin (PITOCIN) 30 units in NS 500 mL IV infusion 12-28 04:53: 42 12-28 07:48 :04 No 300mL/h 300 mL/hr, IV Infusion, SEE-INSTRU CTIONS, Starting on Sat12/27/[address] at 300 mL/hr for 1 hr then 150 mL/hr for 1 hr. & nbsp; For post delivery uterotonic
[facility] acetaminoph en (TYLENOL) tablet 650 mg 12-28 01:45: 00 12-28 00:53 :00 No 650mg 650 mg, Oral, ONCE, 1 dose, On Sat12/27/21 at 2045, Routine [facility] fentaNYL-ro pivacaine 2 mcg/mL-0.1 % (PF) in NS 200 mL epidural infusion RTU 12-28 01:19: 00 12-28 06:37 :52 No Epidural, CONTINUOUS PRN, Starting on Sat12/27/21 at 2019, Until Discontinu ed, Routine, Intra-op [facility] tobramycin (NEBCIN) 280 mg in NaCl 0.9% (NS) piggyback 12-27 22:00: 00 12-28 07:48 :04 No 5mg/kg 280 mg (rounded from 289 mg = 5 mg/kg ?57.8 kg Adjusted weight), IV Piggyback, Q24H ABX, First dose on Sat12/27/21 at 1700, Until Discontinu ed, Administer over 30 Minutes, 50 mL
Reas on for Anti-Infec tive: Empiric Therapy for Suspected Infection< br>Empiric Therapy Site: Pelvic
Duration of therapy: 72 hours [facility] ampicillin (POLYCILLIN -N) 2,000 mg in NaCl 0.9% (NS) 100 mL MINI-BAG 12-27 22:00: 00 12-28 07:48 :04 No 2g 2,000 mg (2 g), IV Piggyback, Q6H ABX, First dose on Sat12/27/21 at 1700, Until Discontinu ed, Administer over 30 Minutes, 100 mL
Reas on for Anti-Infec tive: Empiric Therapy for Suspected Infection< br>Empiric Therapy Site: Pelvic
Duration of therapy: 72 hours [facility] acetaminoph en (TYLENOL) tablet 650 mg 12-27 22:00: 00 12-27 21:17 :00 No 650mg 650 mg, Oral, ONCE, 1 dose, On Sat12/27/21 at 1700, Routine [facility] PIB ropivacaine 0.2 % (NAROPIN (PF)) epidural infusion 12-27 15:45: 00 12-28 06:37 :52 No Epidural, CONTINUOUS PRN, Starting on Sat12/27/21 at 1045, Until Discontinu ed, Routine, Intra-op [facility] lidocaine-e pinephrine (XYLOCAINE W/EPINEPHRI NE) 1.5 %-1:200,000 injection 12-27 15:36: 00 12-28 06:37 :52 No Intraderma l, ONCE INTRA PROCEDURE, Starting on Sat12/27/21 at 1036, Until Discontinu ed, Routine, Intra-op [facility] lactated ringers IV infusion 500 mL 12-27 15:30: 00 12-27 15:17 :00 No 500mL at 999 mL/hr, 500 mL, IV Infusion, ONCE, 1 dose, On Sat12/27/21 at 1030, Routine [facility] sodium citrate-cit bonnie acid (BICITRA) 500-334 mg/5 mL solution 30 mL 12-27 14:15: 17 12-27 15:18 :00 No 30mL 30 mL, Oral, PRE-PROCED URE ONCE, 1 dose, Starting on Sat12/27/21 at 0915, Until Sat12/27/21 at 1018, Routine, Surgery/Pr ocedure [facility] proMETHazin e (PHENERGAN) 25 mg in NS 50 mL IV piggyback (CNR) 12-27 11:00: 00 12-27 10:26 :00 No 25mg 25 mg, IV Piggyback, at 200 mL/hr Administer over 15 Minutes, ONCE, 1 dose, On Sat12/27/21 at 0600, Routine [facility] butorphanol (STADOL) injection 1 mg 12-27 11:00: 00 12-27 10:11 :00 No 1mg 1 mg, IV Push, ONCE, 1 dose, On Sat12/27/21 at 0600, Routine [facility] ondansetron (ZOFRAN (PF)) injection 4 mg 12-27 11:00: 00 12-27 09:52 :00 No 4mg 4 mg, Slow IV Push, ONCE, On Sat12/27/21 at 0600, For 1 dose
Do ses of ondansetro n 16 mg and above need to be administer ed via IV piggyback. For Dose >=24mg ECG monitoring is advisable.
[facility] oxytocin (PITOCIN) 30 units in NS 500 mL IV infusion 12-27 09:13: 57 12-28 07:48 :04 No 2mU/min at 2-40 mL/hr, IV Infusion, TITRATE, Starting on Sat12/27/21 at 0413, Until Natacha 12/28/21 at 0248, DIANA [facility] D5W-LR IV infusion 1,000 mL 12-27 07:15: 00 12-28 07:48 :04 No 1000mL at 125 mL/hr, IV Infusion, CONTINUOUS , Starting on Sat12/27/21 at 0215, Until Natacha 12/28/21 at 0248, Routine [facility] lactated ringers IV infusion 500 mL 12-27 07:02: 44 12-28 07:48 :04 No 500mL at 999 mL/hr, 500 mL, IV Infusion, PRN - SEE INSTRUCTIO NS, Starting on Sat12/27/21 at 0202, Until Natacha 12/28/21 at 0248, Routine [facility] vit/iron fum/folic ac (RIGHT STEP VITAMINS ORAL) 12-27 02:04: 24 Yes [id number] Take by mouth. [facility] No known medications 12-27 02:02: 32 No [facility] valACYclovi r (VALTREX) 500 mg tablet 11-16 00:00: 00 12-29 00:00 :00 No [id number] 500mg Take 1 tablet by mouth 2 (two) times daily. [facility] Vital Signs Vital Name Observation Time Observation Value Comments Maritza weaver Systolic blood pressure 2023-02-12 18:23:00 118 mm[Hg] [facility] Diastolic blood pressure 2023-02-12 18:23:00 53 mm[Hg] [facility] Heart rate 2023-02-12 18:23:00 83 /min [facility] Body temperature 2023-02-12 18:23:00 36.78 Nayeli [facility] Respiratory rate 2023-02-12 18:23:00 16 /min [facility] Body height 2023-02-12 18:23:00 152.4 cm [facility] Body weight 2023-02-12 18:23:00 58.559 kg [facility] BMI 2023-02-12 18:23:00 25.21 kg/m2 [facility] Oxygen saturation in Arterial blood by Pulse oximetry 2023-02-12 18:23:00 98 /min [facility] Systolic blood pressure 2022-03-29 19:43:00 121 mm[Hg] [facility] Diastolic blood pressure 2022-03-29 19:43:00 74 mm[Hg] [facility] Heart rate 2022-03-29 19:43:00 76 /min [facility] Body temperature 2022-03-29 19:43:00 36.89 Nayeli [facility] Respiratory rate 2022-03-29 19:43:00 18 /min [facility] Body height 2022-03-29 19:43:00 152.4 cm [facility] Body weight 2022-03-29 19:43:00 62.143 kg [facility] BMI 2022-03-29 19:43:00 26.76 kg/m2 [facility] Systolic blood pressure 2022-02-27 14:10:00 122 mm[Hg] [facility] Diastolic blood pressure 2022-02-27 14:10:00 81 mm[Hg] [facility] Heart rate 2022-02-27 14:10:00 92 /min Unive [facility] Body temperature 2022-02-27 14:10:00 36.78 Nayeli [facility] Respiratory rate 2022-02-27 14:10:00 16 /min [facility] Body height 2022-02-27 14:10:00 152.4 cm [facility] Body weight 2022-02-27 14:10:00 63.458 kg [facility] BMI 2022-02-27 14:10:00 27.32 kg/m2 [facility] Systolic blood pressure 2022-01-15 16:10:00 123 mm[Hg] [facility] Diastolic blood pressure 2022-01-15 16:10:00 83 mm[Hg] [facility] Heart rate 2022-01-15 16:10:00 80 /min Unive [facility] Body temperature 2022-01-15 16:10:00 36.67 Nayeli [facility] Respiratory rate 2022-01-15 16:10:00 16 /min [facility] Body height 2022-01-15 16:10:00 152.4 cm [facility] Body weight 2022-01-15 16:10:00 64.893 kg [facility] BMI 2022-01-15 16:10:00 27.94 kg/m2 [facility] Systolic blood pressure 2021-12-29 13:20:00 126 mm[Hg] [facility] Diastolic blood pressure 2021-12-29 13:20:00 79 mm[Hg] [facility] Heart rate 2021-12-29 13:20:00 81 /min Unive [facility] Body temperature 2021-12-29 13:20:00 36.33 Nayeli [facility] Respiratory rate 2021-12-29 13:20:00 18 /min [facility] Oxygen saturation in Arterial blood by Pulse oximetry 2021-12-29 13:20:00 96 /min [facility] Body height 2021-12-27 05:50:00 152.4 cm [facility] Body weight 2021-12-27 05:50:00 76.204 kg [facility] BMI 2021-12-27 05:50:00 32.81 kg/m2 [facility] Procedures Procedure Date / Time Performed Performing Clinician Source ASSIGNMENT OF BENEFITS 2023-02-12 18:10:57 Docto r Unassigned, [place] [facility] EXTERNAL PROVIDER RECORDS 2022-03-22 05:01:00 Do ctor Unassigned, [place] [facility] POCT TEST 2022-02-27 14:15:00 Dacia Marte [facility] DISCLOSURE AND CONSENT, MEDICAL AND SURGICAL PROCEDURES 2022-02-27 05:01:00 Doctor Unassigned, [place] [facility] DISABILITY/FMLA 2022-02-14 05:01:00 Doctor Unass igned, [place] [facility] CBC WITH DIFF 2021-12-28 09:20:00 Connie Paz [facility] VENOUS CORD GAS 2021-12-28 04:48:00 Frederic Borjas [facility] CENTRAL NEURAXIAL BLOCK 2021-12-27 15:25:46 Dalila Peters [facility] VZV ANTIBODY SCREEN 2021-12-27 07:23:00 Ana Taylor [facility] HEPATITIS B SURFACE ANTIGEN 2021-12-27 07:23:00 [facility] GALV ONLY - SYPHILIS IGG/IGM 2021-12-27 07:23:00 Frederic Borjas [facility] HB ABO GROUPING 2021-12-27 07:21:00 [facility] RHO (D) IMMUNE GLOBULIN 2021-12-27 07:21:00 Augusto Paz [facility] COVID-19 (ID NOW RAPID TESTING) 2021-12-27 05:53:[address] [facility] LAB ONLY COVID INTERPRETATION 2021-12-27 05:53:[address] [facility] HOSPITAL ADMISSION 2021-12-27 05:01:00 Doctor Un assigned, [place] [facility] L&D VISIT (NON-DELIVERED) 2021-12-26 05:01:00 Do ctor Unassigned, [place] [facility] DME/SUPPLY JUSTIFICATION 2021-12-18 05:01:00 Doc tor Unassigned, [place] [facility] Encounters Start Date/Time End Date/Time Encounter Type Admission Type Attending [facility] Facility Care Department Encounter ID Source 2023-04-30 00:00:00 2023-04-30 00:00:00 Outpatient GC_GCBZW_Ka diyala_S PRIV PRIV [id number] [facility] 2023-04-29 00:00:00 2023-04-29 00:00:00 Outpatient GC_GCBZW_Ka diyala_S PRIV PRIV [id number] [facility] 2023-03-12 11:30:00 2023-03-12 11:30:00 Outpatient TETO [place] [facility] [id number] [facility] 2023-02-18 00:00:00 2023-02-18 00:00:00 Outpatient [facility] [place] [id number] [facility] 2023-02-15 09:00:00 2023-02-15 09:40:37 Outpatient TETO [place] [facility] [id number] [facility] 2023-02-15 09:00:00 2023-02-15 09:15:00 Program Arranger Visit Lab, Ang - Teto Mcintosh [facility] [id number] [id number] [facility] 2023-02-12 13:30:00 2023-02-12 13:49:16 Outpatient [facility] [place] [id number] [facility] 2023-02-12 13:30:00 2023-02-12 13:49:16 Office Visit IsabellTeto cantu [facility] [id number] [id number] [id number] [id number] [facility] 2023-02-12 00:00:00 2023-02-12 00:00:00 Orders Only Doctor Unassigned, [place] [facility] [id number] 350.1.13.10 4.2.7.2.686 [id number] [facility] 2022-11-13 00:00:00 2022-11-13 00:00:00 Case Management Brooklynn Ruth [id number] [id number] 4.2.7.2.686 [id number] [facility] 2022-10-24 14:30:00 2022-10-24 14:30:00 Outpatient R MEEDILANTETO ERNESTOGARLANDRENEATETO [facility] [id number] [facility] 2022-03-29 14:30:00 2022-03-29 15:17:53 Outpatient R DACIA [facility] [id number] [facility] 2022-03-29 14:30:00 2022-03-29 15:17:53 Office Visit Dacia Marte [facility] [id number] [id number] [id number] [id number] [facility] 2022-03-27 09:30:00 2022-03-27 09:30:00 Outpatient R DACIA [facility] [id number] [facility] 2022-03-22 00:00:00 2022-03-22 00:00:00 Orders Only Doctor Unassigned, [place] [facility] [id number] 350.1.13.10 4.2.7.2.686 [id number] [facility] 2022-03-07 00:00:00 2022-03-07 00:00:00 Telephone Dacia Marte [facility] [id number] [id number] 4.2.7.2.686 [id number] [facility] 2022-03-01 00:00:00 2022-03-01 00:00:00 Telephone Dacia Marte [facility] [id number] [id number] [id number] [id number] [facility] 2022-02-27 16:15:00 2022-02-27 16:15:00 Outpatient R DACIA [facility] [id number] [facility] 2022-02-27 08:30:00 2022-02-27 09:31:30 Outpatient R DACIA [facility] [id number] [facility] 2022-02-27 08:30:00 2022-02-27 09:31:30 Routine Visit Estuardo Dacia [facility] [id number] [id number] [id number] [id number] [facility] 2022-02-27 00:00:00 2022-02-27 00:00:00 Telephone Estuardo Dacia [facility] 1.2840.114 350.1.13.10 4.2.7.2.686 [id number] 134 [id number] [facility] 2022-02-27 00:00:00 2022-02-27 00:00:00 Orders Only Doctor Unassigned, [place] [facility] 1.2840.114 350.1.13.10 4.2.7.2.686 [id number] [id number] [facility] 2022-02-26 08:15:00 2022-02-26 08:15:00 Outpatient R [facility] [id number] [facility] 2022-02-14 00:00:00 2022-02-14 00:00:00 Orders Only Doctor Unassigned, [place] [facility] 1.840.114 350.1.13.10 4.2.7.2.686 [id number] 009 [id number] [facility] 2022-01-24 00:00:00 2022-01-24 00:00:00 Telephone Jimena Marten [facility] 1..840.114 350.1.13.10 4.2.7.2.686 [id number] 134 [id number] [facility] 2022-01-15 10:45:00 2022-01-15 11:28:21 Outpatient R [facility] [id number] [facility] 2022-01-15 10:45:00 2022-01-15 11:28:21 Outpatient R [facility] [id number] [facility] 2022-01-15 10:45:00 2022-01-15 11:28:21 Routine Visit Estuardo Dacia [facility] 1.840.114 350.1.13.10 4.2.7.2.686 [id number] 134 [id number] [facility] 2022-01-15 10:45:00 2022-01-15 10:45:00 Outpatient R [facility] [id number] [facility] 2021-12-27 00:32:00 2021-12-29 12:40:[address] [facility] [id number] [facility] 2021-12-27 00:32:00 2021-12-29 12:40:[address] Encounter [address] [facility] 1.2.840.114 350.1.13.10 4.2.7.2.686 [id number] 133 [id number] [facility] 2021-12-28 20:03:20 2021-12-28 20:03:20 Anesthesia Event Brooke Urrutia [facility] 1.2.840.114 350.1.13.10 4.2.7.2.686 [id number] 132 [id number] [facility] 2021-12-27 10:20:00 2021-12-28 01:37:00 Anesthesia Event Golden Peters Lucas Jazzmineguerline [facility] 1.2.840.114 350.1.13.10 4.2.7.2.686 [id number] 132 [id number] [facility] 2021-12-27 00:32:00 2021-12-27 00:32:[address] [facility] [id number] [facility] 2021-12-27 00:00:00 2021-12-27 00:00:00 Orders Only Doctor Unassigned, [place] [facility] 1.2.840.114 350.1.13.10 4.2.7.2.686 [id number] [id number] [facility] 2021-12-26 03:55:00 2021-12-26 10:10:00 Outpatient P DACIA MARTE [facility] [id number] [facility] 2021-12-26 03:55:00 2021-12-26 10:10:00 Hospital Encounter Dacia Marte [facility] 1.2840.114 350.1.13.10 4.2.7.2.686 [id number] [facility] 2021-12-26 03:55:00 2021-12-26 10:10:00 Outpatient P DACIA MARTE [facility] [id number] [facility] 2021-12-25 13:00:00 2021-12-25 13:15:00 Laboratory Only Only, Adc Test Dacia Marte [facility] 1..114 350.1.13.10 4.2.7.2.686 [id number] [facility] 2021-12-25 13:00:00 2021-12-25 13:00:00 Outpatient R [facility] [id number] [facility] 2021-12-25 13:00:00 2021-12-25 13:00:00 Outpatient R [facility] [id number] [facility] 2021-12-25 09:30:00 2021-12-25 10:16:55 Outpatient R ESTUARDO [facility] [id number] [facility] 2021-12-25 09:30:00 2021-12-25 10:16:55 Routine Visit Dacia Marte [facility] 1..114 350.1.13.10 4.2.7.2.686 [id number] 134 [id number] [facility] 2021-12-25 00:00:00 2021-12-25 00:00:00 Orders Only Doctor Unassigned, [place] [facility] 1..114 350.1.13.10 4.2.7.2.686 [id number] 009 [id number] [facility] 2021-12-20 10:45:00 2021-12-20 10:45:00 Outpatient R TETO STRAUSS [facility] [id number] [facility] 2021-12-18 00:00:00 2021-12-18 00:00:00 Orders Only Doctor Unassigned, [place] [facility] 1.0.114 350.1.13.10 4.2.7.2.686 [id number] [id number] [facility] 2021-12-14 14:15:00 2021-12-14 14:42:20 Outpatient R [facility] [id number] [facility] 2021-12-14 14:15:00 2021-12-14 14:42:20 Routine Visit Dacia Marte [facility] 1.0.114 350.1.13.10 4.2.7.2.686 [id number] 134 [id number] [facility] 2021-12-14 14:15:00 2021-12-14 14:15:00 Outpatient R DAC[facility] [id number] [facility] 2021-12-07 15:15:00 2021-12-07 15:52:49 Outpatient R DAC[facility] [id number] [facility] 2021-12-07 15:15:00 2021-12-07 15:52:49 Routine Visit Dacia Marte [facility] 1..114 350.1.13.10 4.2.7.2.686 [id number] 134 [id number] [facility] 2021-12-07 00:00:00 2021-12-07 00:00:00 Orders Only Doctor Unassigned, [place] [facility] 1..114 350.1.13.10 4.2.7.2.686 [id number] [id number] [facility] 2021-12-06 10:00:00 2021-12-06 10:15:00 Program Arranger Visit Pob, Adc Lab Main Dacia Marte [facility] 1.2.114 350.1.13.10 4.2.7.2.686 [id number] [facility] 2021-12-06 10:00:00 2021-12-06 10:00:00 Outpatient R DAC[facility] [id number] [facility] 2021-12-06 00:00:00 2021-12-06 00:00:00 Orders Only Doctor Unassigned, [place] [facility] 1.2.840.114 350.1.13.10 4.2.7.2.686 [id number] [id number] [facility] 2021-12-04 00:00:00 2021-12-04 00:00:00 Telephone Estuardo Dacia [facility] 1.2.840.114 350.1.13.10 4.2.7.2.686 [id number] [facility] 2021-12-01 00:00:00 2021-12-01 00:00:00 Orders Only Doctor Unassigned, [place] [facility] 1.2.840.114 350.1.13.10 4.2.7.2.686 [id number] [id number] [facility] 2021-11-30 13:00:00 2021-11-30 14:22:09 Routine Visit Dcaia Marte [facility] 1.2.840.114 350.1.13.10 4.2.7.2.686 [id number] 134 [id number] [facility] 2021-11-30 13:00:00 2021-11-30 14:22:09 Outpatient R [facility] [id number] [facility] 2021-11-30 00:00:00 2021-11-30 00:00:00 Orders Only Doctor Unassigned, [place] [facility] 1.2.840.114 350.1.13.10 4.2.7.2.686 [id number] [facility] 2021-11-23 00:00:00 2021-11-23 00:00:00 Orders Only Doctor Unassigned, [place] [facility] 1.2.840.114 350.1.13.10 4.2.7.2.686 [id number] [id number] [facility] 2021-11-16 13:45:00 2021-11-16 14:48:15 Outpatient R DAC[facility] [id number] [facility] 2021-11-16 13:45:00 2021-11-16 14:48:15 Routine Visit Dacia Marte [facility] 1.2840.114 350.1.13.10 4.2.7.2.686 [id number] 134 [id number] [facility] 2021-11-09 10:00:00 2021-11-09 10:45:58 Outpatient R DACIA [facility] [id number] [facility] 2021-11-09 10:00:00 2021-11-09 10:45:58 Routine Visit Dacia Marte [facility] 1.2840.114 350.1.13.10 4.2.7.2.686 [id number] 134 [id number] [facility] 2021-10-24 14:30:00 2021-10-24 15:41:44 Initial Visit Dacia Marte [facility] 1.2840.114 350.1.13.10 4.2.7.2.686 [id number] 134 [id number] [facility] 2021-10-24 14:30:00 2021-10-24 15:41:44 Outpatient R DAC[facility] [id number] [facility] 2021-10-24 00:00:00 2021-10-24 00:00:00 Orders Only Doctor Unassigned, [place] [facility] 1.2840.114 350.1.13.10 4.2.7.2.686 [id number] [id number] [facility] 2021-10-02 00:00:00 2021-10-02 00:00:00 Orders Only Doctor Unassigned, [place] [facility] 1.2.840.114 350.1.13.10 4.2.7.2.686 [id number] [facility] Results Test Description Test Time Test Comments Results Result Co mments Source [facility] ANTIBODY QBVIGX0943-40-97 19:54:30* Test Item Value Reference Range Interpretation Comme nts VZV IgG antibody (test code = 90197-0) Positive Negative BRITTNEY (test code = BRITTNEY) Positive - Indicat es the patient was exposed to VZV through infection or vaccination.Negative - Indicates the patient could be susceptible to VZV infection.Equivocal - A second specimen should be sent for testing. [facility] FallsCBC with Yrsipecrpxrl1721-47-50 10:25:02* Test Item Value Reference Range Interpretation Comme nts WBC (test code = 6690-2) See_Comment H [Automated message] The system which generated this result transmitted reference range: 4.30 - 11.10 10*3/?L. The reference range was not used to interpret this result as normal/abnormal. RBC (test code = 789-8) See_Comment L [Automated message] The system which generated this result transmitted reference range: 3.93 - 5.25 10*6/?L. The reference range was not used to interpret this result as normal/abnormal. HGB (test code = 718-7) 10.2 g/dL 11.6-15.0 L HCT (test code = 4544-3) 30.3 % 35.7-45.2 L MCV (test code = 787-2) 93.8 fL 80.6-95.5 MCH (test code = 785-6) 31.6 pg 25.9-32.8 MCHC (test code = 786-4) 33.7 g/dL 31.6-35.1 RDW-SD (test code = 21568-9) 49.9 fL 39.0-49.9 RDW-CV (test code = 788-0) 14.6 % 12.0-15.5 PLT (test code = 777-3) See_Comment L [Automated message] The system which generated this result transmitted reference range: 166 - 358 10*3/?L. The reference range was not used to interpret this result as normal/abnormal. MPV (test code = 77181-1) 13.0 fL 9.5-12.9 H NRBC/100 WBC (test code = 3544613421) See_Comment [Automated message] The system which generated this result transmitted reference range: 0.0 - 10.0 /100 WBCs. The reference range was not used to interpret this result as normal/abnormal. NRBC x10^3 (test code = 3972370800) <0.01 See_Comment [Automated message] The system which generated this result transmitted reference range: 10*3/?L. The reference range was not used to interpret this result as normal/abnormal. GRAN MAT (NEUT) % (test code = 770-8) 86.5 % IMM GRAN % (test code = 4309830084) 0.60 % LYMPH % (test code = 736-9) 7.1 % MONO % (test code = 5905-5) 5.5 % EOS % (test code = 713-8) 0.1 % BASO % (test code = 706-2) 0.2 % GRAN MAT x10^3(ANC) (test code = 9602227379) 21.98 10*3/uL 1.88-7.09 H IMM GRAN x10^3 (test code = 4802485025) 0.16 10*3/uL 0.00-0.06 H LYMPH x10^3 (test code = 731-0) 1.81 10*3/uL 1.32-3.29 MONO x10^3 (test code = 742-7) 1.39 10*3/uL 0.33-0.92 H EOS x10^3 (test code = 711-2) <0.03 0.03-0.39 L BASO x10^3 (test code = 704-7) 0.06 10*3/uL 0.01-0.07 BANDS (test code = 2343038036) MARKED INCREASED A Lab Interpretation (test code = 51304-7) Abnormal [facility] (D) IMMUNE QOORCZNC4552-21-27 08:00:01* Test Item Value Reference Range Interpretation Comme nts RHIG CANDIDATE? (test code = 5055) No- see comment Patient is not a candidate for RhIg- Patient is Rh Positive.Performed at [facility] Laboratory Services - [facility] Blood [address] [place] [address]4914Rzkg Free: [phone] No. [id number] [facility] BranchVENOUS CORD SKQ3556-62-77 05:10:08* Test Item Value Reference Range Interpretation Comme nts VENOUS BASE EXCESS, CORD (test code = 9578257009) mEq/L VENOUS PH, CORD (test code = 8792611473) 7.25-7.45 VENOUS PC02, CORD (test code = 3540135540) See_Comment [Automated messa ge] The system which generated this result transmitted reference range: 27 - 49 mmHg. The reference range was not used to interpret this result as normal/abnormal. VENOUS PO2, CORD (test code = 4650555017) See_Comment [Automated me ssage] The system which generated this result transmitted reference range: 17 - 41 mmHg. The reference range was not used to interpret this result as normal/abnormal. VENOUS BICARBONATE, CORD (test code = 6609809094) See_Comment QUES [Automated message] The system which generated this result transmitted reference range: 12 - 29 mEq/L. The reference range was not used to interpret this result as normal/abnormal. [facility] FallsARTERIAL CORD SJT6715-40-19 05:06:57* Test Item Value Reference Range Interpretation Comme nts BASE EXCESS, CORD (test code = 0721252321) mEq/L AC PH, CORD (BEAKER) (test code = 6053076026) 7.18-7.38 PC02, CORD (test code = 6001516313) See_Comment [Automated messa ge] The system which generated this result transmitted reference range: 32 - 66 mmHg. The reference range was not used to interpret this result as normal/abnormal. PO2, CORD (test code = 2970615712) See_Comment [Automated messa ge] The system which generated this result transmitted reference range: 10 - 30 mmHg. The reference range was not used to interpret this result as normal/abnormal. BICARBONATE, CORD (test code = 9142543891) See_Comment [Automated messa ge] The system which generated this result transmitted reference range: 17 - 27 mEq/L. The reference range was not used to interpret this result as normal/abnormal. [facility] FallsGALV ONLY - SYPHILIS IGG/RYH9484-01-59 16:30:51* Test Item Value Reference Range Interpretation Comme nts Syphilis IgG/IgM (test code = 91599-5) Non-reactive Non-reactive BRITTNEY (test code = BRITTNEY) Non-reactive - No serologic evidence of T. pallidum infection. Cannot exclude incubating or early syphilis. Submit a second specimen in 2-4 weeks if syphilis is clinically suspected. Equivocal - Further testing to follow. Reactive - Further testing to follow. Lab Interpretation (test code = 67851-3) Normal [facility] FallsHepatitis B Surface Ljcaxzp8459-42-16 09:57:08 * Test Item Value Reference Range Interpretation Comme nts HBsAg Semi-Quantitative (munira t code = 5195-3) Negative Negative [facility] FallsType and Screen - ONCE RXOS8658-90-59 08:24:22 * Test Item Value Reference Range Interpretation Comme nts ABO & RH (test code = 20) A POSITIVE Performed at [facility] Laboratory Services [facility] Blood [address] Free: [phone] No. [id number] IAT (test code = 1185) Negative Performed at [facility] Laboratory [facility] Blood [address] Free: [phone] No. [id number] [facility] Notes Date/Time Note Provider Source 2023-02-15 09:00:00 HmwsOfyeajoavGbf0T+H yF8lBqsdupVMsDsOOLV0k3 5fc1FCMH3PMFzwkSp/h23o1495-11-49R08:00:00F ormatting of this note is different from the original.Images from the original note were not included.Venipuncture collection performed by clean technique on the right anticubitus. Total of 1 attempts were made. Slight pressure and a bandage/dressing were applied to the site(s). The patient experienced no complications. The following specimens were processed according to instructions and sent to [facility] laboratories per lab order on 02/15/2023 : LT BLUE SST 3 RED LAV 2 PPT DK GREEN (LiHep) DK GREEN (SodH) SHETTY DK BLUE (K2) DK BLUE (S) ACD Blood Culture NIPT/NTD 12448-8Vxsox JksxGT4439-30-09I84:24:40Nurse NoteTXT1.2.840.377208.1.13.104.2.7.2.25510 9|[id number] for patient hwfl03224-1Bgvsv Note[address] IwmxLqfcenciyEmivdaqanEFJM9485043939CHFLUT UQGMARQSCBITODKF0029-89-40Y00:24:401.2.840 .820038.1.72.3.15|1.2.840.704918.1.13.104. 2.7.2.727879_[id number] [facility] 2023-02-12 13:30:00 1VnGsBlIm4etYTXDlJFH 9uNTxgYfhjSqdcDMUsdkP/ wxPfwDNrFz5/xxqkKAEskh7340-87-28X26:30:00F ormatting of this note is different from the original.- Reviewed EDPS and JUAN DAVID-7. - EDPS = 21- JUAN DAVID-7 = 16- EDPS question # 10 - Sometimes. Patient denies thoughts of SI or HI. Does not plan to harm herself. She described this more as a "feeling that it would be better if I am not here". Positive family support, patient has discussed feelings with partner. Plan to initiate Bupropion XR 150mg daily and f/u in four weeks. Also plan to order pelvic ultrasound to ensure correct IUD placement and scan ovaries for possible cyst (patient has a history of ovarian cysts). Labs will be ordered for evaluation. Discussed that elevated testosterone levels from a cyst might cause mood alterations. Message on My Chart will be sent to patient that will allow direct access to provider. Plan to f/u in four weeks; sooner as indicated. Discussed counseling, patient prefers to defer until ultrasound and lab results are available.Teto Strauss NP 02/12/2023 2:08 PMSuicide Risk - Assessment and PlanColumbia:1) Have you wished you were or could go to sleep and not wake up?: No2) Have you had thoughts of killing yourself?: No3) Have you been thinking about how you might kill yourself?: No 4) Suicidal ideation with some intent?: No 5) Have you worked out the details of the plan AND intend to follow through?: No 6) Suicidal Behavior or preparation for suicide?: No [place] Score:Suggested risk level: Not calculatedSAFE-T:Current and past psychiatric diagnoses: Other (see comments)Presenting symptoms: Anxiety and/or panic;Hopelessness or despairFamily history: No family history of psychiatric illnessActivating Events: None identified Precipitants / stressors: None identifiedProtective factors: Positive family/friend relationships;Supportive social network of family and friends;Identified reasons for living (children, family, friends, goals) Access to Lethal Means:Does patient have access to a gun or access to guns?: NoSpecific Questions of Thoughts, Plans, Intent:Frequency- how many times have you had these thought?: Less than once a week (Denies thought of suicide; just "feels that being here is hard")2.Duration - When you have the thoughts, how long do they last?: Fleeting, a few seconds or minutes3.Controllability - could/can you stop thinking about killing yourself or wanting to if you want to? "Is it easy, a little hard, very hard, or are you unable?": Easily able to control thoughts"4.Deterrents - are there things, anyone or anything (family, hinduism, pain of ) that have stopped you from wanting to or acting on thoughts of committing suicide?: Deterrents definitely stopped from attempting (Family iqbal)Reasons for ideation - What are the reasons you have for wanting to or kill yourself? Was it to end pain, stop the way you are feeling, or to get attention, or get revenge and reaction from others?: Does not applyBehavior Assessment:1.Were there preparatory acts like buying pills, guns, giving things away, or writing suicide note?: No2.Was an attempt aborted or self - interrupted?: No3.Was an attempt interrupted by someone else?: No4.Was there an actual attempt?: No5.Is there non suicidal self injury? Cutting, biting, skin picking: No6.For youth: parents or guardians should be asked about thoughts, plans, behaviors, mood changes, etc : No7.Is there homicidal ideation: if so, describe: No Stratification:High Suicide Risk Moderate Suicide Risk Low Suicide Risk ?? Suicidal ideation with intent or intent with plan in past month (C-SSRS Suicidal Ideation #4 or #5) Or ?? Suicidal behavior within past 3 months (C-SSRS Suicidal Behavior) ?? Suicidal ideation with method, WITHOUT plan, intent or behavior in past month (C-SSRS Suicidal Ideation #3) Or ?? Suicidal behavior more than 3 months ago (C-SSRS Suicidal Behavior Lifetime) Or ?? Multiple risk factors and few protective factors ?? Wish to or Suicidal Ideation WITHOUT method, intent, plan or behavior (C-SSRS Suicidal Ideation #1 or #2) Or ?? Modifiable risk factors and strong protective factors Or ? No reported history of Suicidal Ideation or Behavior Location / Risk:Outpatient / Low: No SI or HIWish to or suicidal ideation without method, intent, plan or behavior and no history of suicidal behavior. a. Consider referral to behavioral health resources.b. Follow-up with Pediatric provider within 2 weeks.c. Consider developing a safety plan. [id number] + Plan pkfoAE7765-04-85T39:47:22Evaluation + Plan noteTXT1.2.840.242007.1.13.104.2.7.2.15565 9|[id number] for patient ngju39263-2GcmvNFTRMWUBSN[address] MllpEibltqpuaGwnevrirrXXFD5676846555KFIBFS WJOUSRDQLLJTDMRA9448-48-46B55:47:221.2.840 .752717.1.72.3.15|1.2.840.030088.1.13.104. 2.7.2.727879_[id number] [facility]
[2023-10-30] MEDS ORDERED: IBUPROFEN 400 MG TAB ONE (09:03)
--- NOTE | 2023-10-30 09:40 | EDPHYS ---
Physician Documentation [facility] Name: Isidra Todd Age: 23 yrs Sex: Female : 2000 Arrival Date: 10/30/2023 Time: 08:46 Bed 6 Private MD: ED Physician Claire Munoz HPI: 10/29 09:07 This 23 yrs old Female presents to ER via Ambulatory with complaints of Hip sp3 Pain. 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 She denies any other symptoms including trauma, symptoms, DISH MACHINE OPERATOR symptoms, abdominal pain, other GI symptoms, back pain, flank pain, past medical history including kidney stone, or any other concerning symptoms. Pain is worse on palpation and when she stands. ROS otherwise negative.. 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 - Infectious Disease History:: Denies. - Social history:: Smoking status: Patient denies any tobacco usage or history of. ROS: 09:08 Constitutional: Negative for fever, chills, and weight loss, Eyes: Negative for injury, sp3 pain, redness, and discharge, Neck: Negative for injury, pain, and swelling, Cardiovascular: Negative for chest pain, palpitations, and edema, Respiratory: Negative for shortness of breath, cough, wheezing, and pleuritic chest pain, Abdomen/GI: Negative for abdominal pain, nausea, vomiting, diarrhea, and constipation, : Negative for injury, bleeding, discharge, and swelling, Skin: Negative for injury, rash, and discoloration, Neuro: Negative for headache, weakness, numbness, tingling, and seizure, Psych: Negative for depression, anxiety, suicide ideation, homicidal ideation, and hallucinations, Allergy/Immunology: Negative for hives, rash, and allergies, Endocrine: Negative for neck swelling, polydipsia, polyuria, polyphagia, and marked weight changes, 09:08 All other systems are negative, Exam: 09:08 Constitutional: This is a well developed, well nourished patient who is awake, alert, sp3 and in no acute distress. Head/Face: Normocephalic, atraumatic. Eyes: Pupils equal round and reactive to light, extra-ocular motions intact. Lids and lashes normal. Conjunctiva and sclera are non-icteric and not injected. Cornea within normal limits. Periorbital areas with no swelling, redness, or edema. ENT: Nares patent. No nasal discharge, no septal abnormalities noted. External auditory canals are clear. Oropharynx with no redness, swelling, or masses, exudates, or evidence of obstruction, uvula midline. Mucous membranes moist. Neck: Trachea midline, no thyromegaly or masses palpated, and no cervical lymphadenopathy. Supple, full range of motion without nuchal rigidity, or vertebral point tenderness. No Meningismus. Chest/axilla: Normal chest wall appearance and motion. Nontender with no deformity. No lesions are appreciated. Cardiovascular: Regular rate and rhythm with a normal S1 and S2. No gallops, murmurs, or rubs. Normal PMI, no JVD. No pulse deficits. Respiratory: Lungs have equal breath sounds bilaterally, clear to auscultation and percussion. No rales, rhonchi or wheezes noted. No increased work of breathing, no retractions or nasal flaring. Abdomen/GI: Soft, non-tender, with normal bowel sounds. No distension or tympany. No guarding or rebound. No evidence of tenderness throughout. Back: No spinal tenderness. No costovertebral tenderness. Full range of motion. Skin: Warm, dry with normal turgor. Normal color with no rashes, no lesions, and no evidence of cellulitis. Neuro: Awake and alert, GCS 15, oriented to person, place, time, and situation. Cranial nerves II-XII grossly intact. Motor strength 5/5 in all extremities. Sensory grossly intact. Cerebellar exam normal. Normal gait. Psych: Awake, alert, with orientation to person, place and time. Behavior, mood, and affect are within normal limits. 09:08 Musculoskeletal/extremity: Patient has pain on the anterior pelvis area on the left side. No pain on axial hip load, and distal extremity exam is normal. Mild pain elicitation on hip flexion. Back exam is normal.. Vital Signs: 08:56 BP 157 / 79; Pulse 92; Resp 16; Temp 97.1; Pulse Ox 100% ; Weight 57.61 kg; Height 4 iw ft. 11 in. ; Pain 9/10; 09:09 BP 156 / 77; Pulse 79; Resp 16 S; Pulse Ox 97% on R/A; kc6 09:50 BP 157 / 79; Pulse 80; Resp 15 S; Pulse Ox 99% on R/A; kc6 08:56 Body Mass Index 25.65 (57.61 kg, 149.86 cm) iw 08:56 Pain Scale: Adult iw MDM: 08:51 Patient medically screened. sp3 09:09 Data reviewed: vital signs, nurses notes, radiologic studies. ED course: 23-year-old sp3 female with hip pain. Differential diagnosis includes muscle strain, bursitis, inflammation of the hip itself, among others. I am not highly suspicious for GI, DISH MACHINE OPERATOR, or vascular pathology. Workup will include x-rays of the hip and p.o. ibuprofen. Patient declined IM ketorolac. Disposition pending workup and patient course with probable discharge and rest.. 09:38 ED course: X-rays are all normal with no concerning findings. Will discharge on sp3 diclofenac p.o. and 24-hour rest.. 10/29 09:00 Order name: Hip Left 2 View XRAY sp3 10/29 09:00 Order name: Pelvis XRAY sp3 Administered Medications: 09:06 Drug: Ibuprofen PO 800 mg PO once Route: PO; kc6 09:49 Follow up: Response: No adverse reaction kc6 Disposition Summary: 10/30/23 09:40 Discharge Ordered Notes: Location: Home sp3 Condition: Stable sp3 Diagnosis - Bursitis, left hip inflammation sp3 Followup: sp3 - With: Private Physician - When: Upon discharge from the Emergency Department - Reason: Continuance of care Discharge Instructions: - Discharge Summary Sheet sp3 - Hip Bursitis sp3 Forms: - Medication Reconciliation Form sp3 - Antibiotic Education sp3 - Prescription Opioid Use sp3 - Patient Portal Instructions sp3 - Leadership Thank You Letter sp3 Prescriptions: - Diclofenac Sodium 75 mg Oral Tablet Sustained Release - take 1 tablet ORAL route 2 times per day; 30 tablet; Refills: 0, Product sp3 Selection Permitted Signatures: Dispatcher [employer] Alice Howard, RN RN iw Claire Munoz MD MD sp3 Sarah Haile RN RN kc6
--- NOTE | 2023-10-30 09:40 | ER ---
Nurse's Notes [facility] Name: Isidra Todd Age: 23 yrs Sex: Female : 2000 Arrival Date: 10/30/2023 Time: 08:46 Bed 6 Private MD: Diagnosis: Bursitis, left hip inflammation Presentation: 10/29 08:56 Chief complaint: Patient states: left hip pain since yesterday , worse last night, iw denies injury, pain radiates down left leg. Coronavirus screen: At this time, the client does not indicate any symptoms associated with coronavirus-19. Ebola Screen: No symptoms or risks identified at this time. Initial Sepsis Screen: Does the patient meet any 2 criteria? No. Patient's initial sepsis screen is negative. Does the patient have a suspected source of infection? No. Patient's initial sepsis screen is negative. Risk Assessment: Do you want to hurt yourself or someone else? Patient reports no desire to harm self or others. Onset of symptoms was October 29, 2023. 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 - Infectious Disease History:: Denies. - Social history:: Smoking status: Patient denies any tobacco usage or history of. Screenin:07 [facility] ED Fall Risk Assessment (Adult) History of falling in the last 3 months, kc6 including since admission No falls in past 3 months (0 pts) Confusion or Disorientation No (0 pts) Intoxicated or Sedated No (0 pts) Impaired Gait No (0 pts) Mobility Assist Device Used No (0 pt) Altered Elimination No (0 pt) Score/Fall Risk Level 0 - 2 = Low Risk. Abuse screen: Denies threats or abuse. Denies injuries from another. Nutritional screening: No deficits noted. Tuberculosis screening: No symptoms or risk factors identified. Assessment: 09:08 General: Appears in no apparent distress. uncomfortable, well groomed, well developed, kc6 Behavior is calm, cooperative, appropriate for age, crying. Pain: Complains of pain in left hip Pain radiates to left leg Quality of pain is described as sharp, shooting, Pain began 1 day ago. Is continuous, Alleviated by rest, Aggravated by increased activity, Noted to be crying, resistant to movement, Also complains of no other associated symptoms. Neuro: Level of Consciousness is awake, alert, obeys commands, Oriented to person, place, time, situation, Appropriate for age. Cardiovascular: Capillary refill < 3 seconds. Respiratory: Airway is patent Trachea midline Respiratory effort is even, unlabored, Respiratory pattern is regular, symmetrical. GI: No signs and/or symptoms were reported involving the gastrointestinal system. : No signs and/or symptoms were reported regarding the genitourinary system. EENT: No signs and/or symptoms were reported regarding the EENT system. Derm: No signs and/or symptoms reported regarding the dermatologic system. Skin is intact, is healthy with good turgor, Skin is pink, warm \T\ dry. Musculoskeletal: No signs and/or symptoms reported regarding the musculoskeletal system. Circulation, motion, and sensation intact. Capillary refill < 3 seconds, Range of motion: intact in all extremities. 09:50 Reassessment: Patient appears in no apparent distress at this time. No changes from kc6 previously documented assessment. Patient and/or family updated on plan of care and expected duration. Pain level reassessed. Patient is alert, oriented x 3, equal unlabored respirations, skin warm/dry/pink. Vital Signs: 08:56 BP 157 / 79; Pulse 92; Resp 16; Temp 97.1; Pulse Ox 100% ; Weight 57.61 kg; Height 4 iw ft. 11 in. ; Pain 9/10; 09:09 BP 156 / 77; Pulse 79; Resp 16 S; Pulse Ox 97% on R/A; kc6 09:50 BP 157 / 79; Pulse 80; Resp 15 S; Pulse Ox 99% on R/A; kc6 08:56 Body Mass Index 25.65 (57.61 kg, 149.86 cm) iw 08:56 Pain Scale: Adult iw ED Course: 08:50 Patient arrived in ED. mg5 08:51 Claire Munoz MD is Attending Physician. sp3 08:58 Triage completed. iw 08:58 Arm band placed on. iw 09:01 Sarah Haile, RN is Primary Nurse. kc6 09:07 Patient has correct armband on for positive identification. Bed in low position. Call kc6 light in reach. Side rails up X 1. Client placed on continuous cardiac and pulse oximetry monitoring. NIBP monitoring applied. Door closed. Noise minimized. Lights dimmed. Pillow given. 09:48 Hip Left 2 View XRAY In Process Unspecified. EDMS 09:48 Pelvis XRAY In Process Unspecified. EDMS 09:55 Provided Education on: meds. ko1 09:55 No provider procedures requiring assistance completed. Patient did not have IV access ko1 during this emergency room visit. Administered Medications: 09:06 Drug: Ibuprofen PO 800 mg PO once Route: PO; kc6 09:49 Follow up: Response: No adverse reaction kc6 Medication: 09:55 VIS not applicable for this client. ko1 Outcome: 09:40 Discharge ordered by . sp3 09:55 Discharged to home ambulatory, ko1 09:55 Condition: stable 09:55 Discharge instructions given to patient, Instructed on discharge instructions, follow up and referral plans. medication usage, Demonstrated understanding of instructions, follow-up care, medications, Prescriptions given X 1, 09:57 Patient left the ED. ko1 Signatures: Dispatcher [employer] Alice Howard RN RN iw Patel, Setul, MD MD sp3 Sarah Haile RN RN kcAshely Ohara RN RN ko1 Alejandra Youngblood mg5
[2023-10-30 10:21] VITALS: BP 157/79; TEMP 97.1; O2SAT 99
--- NOTE | 2023-10-30 11:15 | RAD REPORT ---
EXAM DESCRIPTION: RAD - Hip Left 2 View - 10/30/2023 9:46 am CLINICAL HISTORY: PAIN COMPARISON: No comparisons TECHNIQUE: Left hip, AP and frogleg views of the left hip. FINDINGS: There is no fracture or dislocation. No acute or destructive bony process seen. IMPRESSION: No acute findings of the left hip.
--- NOTE | 2023-10-30 11:15 | RAD REPORT ---
EXAM DESCRIPTION: RAD - Pelvis - 10/30/2023 9:46 am CLINICAL HISTORY: PAIN COMPARISON: No comparisons TECHNIQUE: Single AP view of the pelvis. FINDINGS: The visualized pelvic ring is intact. No suspicious osseous lesions. No significant degene rative changes or erosions of the hip joints. Other pelvic joints are unremarkable. Visualized aspect s of the abdomen and soft tissues are unremarkable. IMPRESSION: No acute osseous abnormality of the bony pelvis.
== END 2023-10-30 09:57 | disposition home or self-care (01) ==
LOC: ER 08:46
DX: M70.72 Other bursitis of hip, left hip (principal)
CPT/HCPCS: 72170; 99284